=== PATIENT | female | born 2000 | race Caucasian/White ===

== ENCOUNTER 2025-03-03 18:21 | Emergency (ER) | payer OTHER ==
[~2025-03-03 18:21] MED LIST: Iopamidol-370 76% 500 ML MDV (1 ML CHARGE) ONE
[2025-03-03] MEDS ORDERED: Ondansetron PF 4 MG/2 ML Vial ONE (22:03)
[2025-03-03 22:34] LABS: #Basophils Less than 0.03 10x3/uL (0.0-0.2); #Eosinophils 0.40 10x3/uL (0.0-0.7); #Monocytes 0.57 10x3/uL (0.11-0.59); #Neutrophils 5.58 10x3/uL (1.40-6.50); %Basophils 0.2 % (0.0-1.0); %Eosinophils 4.3 % (0.0-10.0); %Lymphocytes 29.1 % (21.0-51.0); %Monocytes 6.1 % (0.0-10.0); %Neutrophils 60.1 % (42.0-75.0); Hematocrit 38.6 % (36.0-47.0); Hemoglobin 11.8 g/dL (12.0-16.0); Mean Corpuscular Hemoglobin 22.4 pg (27.0-31.0); Mean Corpuscular Volume 73.2 fL (78.0-98.0); Platelet Count 396 10x3/uL (130-400); Red Blood Cell (RBC) Count 5.27 mill/uL (4.20-5.40); White Blood Cell (WBC) Count 9.29 10x3/uL (4.8-10.8)
[2025-03-03 22:50] LABS: ALT (SGPT) 21 U/L (Less than 34); AST (SGOT) 18 U/L (11-34); Albumin 4.4 g/dL (3.1-4.5); Alkaline Phosphatase 98 U/L (40-110); Anion Gap 13 mmol/L (10-20); BUN (Urea Nitrogen) 9 mg/dL (7.0-18.7); Bilirubin, Total 0.3 mg/dL (0.3-1.2); CK (CPK) 104 U/L (29-168); Calc. Creatinine Clearance 0 mL/min (70-130); Calcium 9.3 mg/dL (7.8-10.44); Carbon Dioxide 22 mmol/L (22-29); Chloride 109 mmol/L (98-107); Globulin 2.9 g/dL (2.4-3.5); Glucose 105 mg/dL (70-105); Potassium 3.5 mmol/L (3.5-5.1); Sodium 140 mmol/L (136-145)
[2025-03-03 23:00] LABS: Microcytosis SLIGHT = 6-15 cells HPF (0-5); Platelet Adequacy Comment Platelets Normal
[2025-03-03 23:17] LABS: BHCG - Serum Negative (NEGATIVE); Pregs Control Background? CLEAR/WHITE (CLR/WHITE); Pregs Control Bar Appear? YES (CONTROL BAR)
== END 2025-03-04 00:24 | disposition home or self-care (01) ==
LOC: ERS 18:21
DX: S13.4XXA Sprain of ligaments of cervical spine, initial encounter (principal); S30.11XA Contusion of abdominal wall, initial encounter; S20.219A Contusion of unspecified front wall of thorax, initial encounter; V89.2XXA Person injured in unspecified motor-vehicle accident, traffic, initial encounter
CPT/HCPCS: 71260; 74177; 80053; 82550; 84703; 85025; 96374; 96375; J2270; J2405; Q9967